=== PATIENT | female | born 1985 ===

== ENCOUNTER 2017-11-12 21:09 | Emergency (ER) | payer BC ==
[2017-11-12] MEDS ORDERED: Sodium Chloride 0.9% 1,000 ML IV STA (22:47)
--- NOTE | 2017-11-12 23:01 | ED PDOC ---
HPI:Nausea, Vomiting, Diarrhea Time Seen by Provider: 11/12/17 21:37 Chief Complaint (Nursing): Flu-like Symptoms Chief Complaint (Provider): nausea History Per: Patient History/Exam Limitations: no limitations Onset/Duration Of Symptoms: Days (22), Waxing/Waning Current Symptoms Are (Timing): Still Present Additional Complaint(s): 32 y/o female presents with intermittent nausea x 2 days. Associated headache, and upper abdominal discomfort. Denies fever, vomiting, cough, congestion, chest pain, shortness of breath, palpitations, changes in bowel movements, urinary symptoms. Past Medical History Reviewed: Historical Data, Nursing Documentation, Vital Signs Vital Signs: Last Vital Signs Temp 98.3 F 11/12/17 21:17 Pulse 66 11/12/17 21:17 Resp 18 11/12/17 21:17 BP 116/67 11/12/17 21:17 Pulse Ox 99 11/12/17 21:17 - Medical History PMH: Asthma - Surgical History Surgical History: No Surg Hx - Family History Family History: States: No Known Family Hx - Home Medications Home Medications: Ambulatory Orders Medication Instructions Recorded Famotidine [Pepcid] 20 mg PO BID #10 tab 11/13/17 Ondansetron ODT [Zofran ODT] 4 mg PO Q8 PRN #10 odt 11/13/17 - Allergies Allergies/Adverse Reactions: Allergies Allergy/AdvReac Type Severity Reaction Status Date / Time amoxicillin Allergy RASH Verified 11/12/17 21:16 Review of Systems ROS Statement: Except As Marked, All Systems Reviewed And Found Negative Gastrointestinal: Positive for: Nausea, Abdominal Pain Neurological: Positive for: Headache Physical Exam - Reviewed Nursing Documentation Reviewed: Yes Vital Signs Reviewed: Yes - Physical Exam Appears: Positive for: Well, Non-toxic, No Acute Distress Head Exam: Positive for: ATRAUMATIC, NORMAL INSPECTION, NORMOCEPHALIC Skin: Positive for: Normal Color Eye Exam: Positive for: Normal appearance ENT: Positive for: Normal ENT Inspection Cardiovascular/Chest: Positive for: Regular Rate, Rhythm Respiratory: Positive for: Normal Breath Sounds Gastrointestinal/Abdominal: Positive for: Bowel Sounds, Soft, Tenderness ( epigastric) Back: Positive for: Normal Inspection Extremity: Positive for: Normal ROM Neurologic/Psych: Positive for: Alert, Oriented - Laboratory Results Result Diagrams: 11/13/17 00:21 11/13/17 00:21 - ECG O2 Sat by Pulse Oximetry: 99 - Progress ED Course And Treament: labs, urine, IV fluids, ODT zofran, IV pepcid EXAM: US Abdomen Limited, Right Upper Quadrant EXAM DATE/TIME: Exam ordered 11/13/2017 2:39 AM CLINICAL HISTORY: 32 years old, female; Signs and symptoms; Nausea; Additional info: Abd pain TECHNIQUE: Real-time ultrasound of the right upper quadrant with image documentation. COMPARISON: No relevant prior studies available. FINDINGS: Liver: Normal. No mass. No intrahepatic bile duct dilation. Gallbladder: There is no cholelithiasis. A negative sonographic Valdez sign is reported. There is no gallbladder sludge. No pericholecystic fluid. Common bile duct: Common bile duct measures approximately 3 mm in diameter. No stones. No dilation. Pancreas: Unremarkable as visualized. Right kidney: RIGHT kidney measures 11.2 x 4.7 x 4.6 cm. No stones. No hydronephrosis. Aorta: The visualized aorta is unremarkable. IMPRESSION: No acute findings. On re-eval, patient states she is feeling better. Patient educated on findings, discharged with rx Zofran, Pepcid. Advised fluids. Follow up PMD 2-3 days. Return precautions given. Disposition - Clinical Impression Clinical Impression: Nausea, Abdominal discomfort - Patient ED Disposition Is Patient to be Admitted: No Counseled Patient/Family Regarding: Studies Performed, Diagnosis, Need For Followup, Rx Given - Disposition Disposition: Routine/Home Disposition Time: 05:59 Condition: IMPROVED Prescriptions: Famotidine [Pepcid] 20 mg PO BID #10 tab Ondansetron ODT [Zofran ODT] 4 mg PO Q8 PRN #10 odt PRN Reason: Nausea/Vomiting Instructions: Acute Abdomen (Belly Pain) Forms: [employer] (Japanese)
[2017-11-13 00:39] LABS: BASO % 0.2 % (0.0-2.0); EOS # 0.1 K/uL (0.0-0.7); EOS % 1.1 % (0.0-4.0); HEMOGLOBIN 12.6 g/dL (12.0-16.0); LYMPH # 4.3 K/uL (1.0-4.3); LYMPH % 34.4 % (20.0-40.0); MEAN CELL VOLUME 83.4 fl (81.0-99.0); MEAN CORPUSCULAR HEMOGLOBIN 27.8 pg (27.0-31.0); MEAN CORPUSCULAR HGB CONC 33.3 g/dL (33.0-37.0); MEAN PLATELET VOLUME 7.8 fl (7.2-11.7); MONO # 0.9 K/uL (0.0-0.8); MONO % 7.2 % (0.0-10.0); NEUT # 7.1 K/uL (1.8-7.0); NEUT % 57.1 % (50.0-75.0); RBC 4.55 Mil/uL (3.80-5.20); RED CELL DISTRIBUTION WIDTH 13.6 % (11.5-14.5); WHITE BLOOD COUNT 12.4 K/uL (4.8-10.8)
[2017-11-13 00:48] LABS: ALB/GLOB RATIO 1.2 (1.0-2.1); ALBUMIN 3.8 g/dL (3.5-5.0); ALT/SGPT 34 U/L (9-52); AST/SGOT 23 U/L (14-36); BLOOD UREA NITROGEN 18 mg/dl (7-17); CALCIUM 9.2 mg/dL (8.4-10.2); GFR AFRICAN-AMERICAN > 60; GFR NON-AFRICAN AMERICAN > 60; LIPASE 90 U/L (23-300)
[2017-11-13 05:41] VITALS: O2SAT 99
[2017-11-13 06:06] VITALS: BP 126/72; PULSE 82; RESP 16; TEMP 98.5
--- NOTE | 2017-11-13 11:03 | US ---
HISTORY: Abdominal pain COMPARISON: None. TECHNIQUE: Sonographic evaluation of the right upper quadrant of the abdomen. FINDINGS: LIVER: Measures 14.8 cm in length. Patent portal vein. Portal venous flow: Hepatopetal. Unremarkable echogenicity of the liver parenchyma. No mass. No intrahepatic bile duct dilatation. GALLBLADDER: Unremarkable. No gallstones. COMMON BILE DUCT: Measures 3.4 mm. No stones. No dilatation. PANCREAS: Unremarkable as visualized. No mass. No ductal dilatation. RIGHT KIDNEY: Measures 4.7 x 11.2 cm in length. Normal echogenicity. No calculus, mass, or hydronephrosis. AORTA: No aneurysmal dilatation. IVC: Unremarkable. OTHER FINDINGS: None . IMPRESSION: No acute findings related to/accounting for the clinical presentation. Concordant results (preliminary interpretation) provided by [facility]. Procedure Completed: 04:24 Preliminary ([facility]) Report: Dictated and Authenticated: 04:57 Final Interpretation: 11:01 November 13, 2017.
== END 2017-11-13 06:06 | disposition home or self-care (01) ==
LOC: H.ER 21:09
DX: R10.9 Unspecified abdominal pain (principal); R11.0 Nausea; J45.909 Unspecified asthma, uncomplicated
CPT/HCPCS: 76705; 80053; 83690; 85025; 87804; 96374; 99283; J7040

== ENCOUNTER 2018-03-03 21:31 | Emergency (ER) | payer OTHER ==
[2018-03-03 21:42] VITALS: PULSE 73; TEMP 98.2
[2018-03-03] MEDS ORDERED: Sodium Chloride 0.9% 500 ML IV STA (22:30)
[2018-03-03 23:07] LABS: BASO % 0.3 % (0.0-2.0); EOS # 0.1 K/uL (0.0-0.7); EOS % 1.1 % (0.0-4.0); HEMOGLOBIN 12.4 g/dL (12.0-16.0); LYMPH # 2.8 K/uL (1.0-4.3); LYMPH % 27.3 % (20.0-40.0); MEAN CELL VOLUME 83.1 fl (81.0-99.0); MEAN CORPUSCULAR HEMOGLOBIN 28.6 pg (27.0-31.0); MEAN CORPUSCULAR HGB CONC 34.4 g/dL (33.0-37.0); MEAN PLATELET VOLUME 7.7 fl (7.2-11.7); MONO # 0.6 K/uL (0.0-0.8); MONO % 5.6 % (0.0-10.0); NEUT # 6.7 K/uL (1.8-7.0); NEUT % 65.7 % (50.0-75.0); NRBC % 0.1 % (0.0-0.0); RBC 4.33 Mil/uL (3.80-5.20); RED CELL DISTRIBUTION WIDTH 13.9 % (11.5-14.5); WHITE BLOOD COUNT 10.2 K/uL (4.8-10.8)
[2018-03-03 23:12] LABS: ALB/GLOB RATIO 1.3 (1.0-2.1); ALBUMIN 3.9 g/dL (3.5-5.0); ALT/SGPT 44 U/L (9-52); AST/SGOT 32 U/L (14-36); BLOOD UREA NITROGEN 15 mg/dl (7-17); CALCIUM 9.1 mg/dL (8.4-10.2); GFR NON-AFRICAN AMERICAN > 60
[2018-03-03 23:20] LABS: B-TYPE NATRIURETIC PEPTIDE 90.2 pg/ml (0-450)
--- NOTE | 2018-03-04 00:17 | ED PDOC ---
HPI: Headache Time Seen by Provider: 03/03/18 21:48 Chief Complaint (Nursing): Headache Chief Complaint (Provider): Headache History Per: Patient History/Exam Limitations: no limitations Onset/Duration Of Symptoms: Days (x2) Current Symptoms Are (Timing): Still Present Associated Symptoms: Nausea. denies: Photophobia, Vomiting Additional Complaint(s): 33 year old female with a pmhx of asthma presents to the ED for evaluation of a headache associated with nausea. As per patient, her headache began last night, and worsened today becoming more intense, unrelieved with Tylenol. Otherwise: (- ) thunderclap headache, (-) worse headache of life, (-) vomiting, (-) photophobia, (-) URI symptoms, (-) fever, (-) trauma, (-) subjective neurologic symptoms. Additionally, patient is reporting having bilateral leg swelling for two months. She states she saw her PMD, who told her it could just be attributed to her gaining weight, but she is worried about it still. Otherwise: (-) pain to legs, (-) chest pain, (-) shortness of breath, (-) hospitalization, (-) prolonged immobility, (-) recent travel. PMD: Roberto Garcia Past Medical History Reviewed: Historical Data, Nursing Documentation, Vital Signs Vital Signs: Last Vital Signs Temp 98.2 F 03/03/18 21:39 Pulse 73 03/03/18 21:39 Resp 16 03/03/18 21:39 BP 109/73 03/03/18 21:39 Pulse Ox 99 03/03/18 21:39 - Medical History PMH: Asthma - Surgical History Surgical History: No Surg Hx - Family History Family History: States: Unknown Family Hx - Social History Current smoker - smoking cessation education provided: No Alcohol: None Drugs: Denies - Home Medications Home Medications: Ambulatory Orders Medication Instructions Recorded Famotidine [Pepcid] 20 mg PO BID #10 tab 11/13/17 Ondansetron ODT [Zofran ODT] 4 mg PO Q8 PRN #10 odt 11/13/17 Metoclopramide HCl [Reglan] 10 mg PO QID PRN #20 tablet 03/04/18 - Allergies Allergies/Adverse Reactions: Allergies Allergy/AdvReac Type Severity Reaction Status Date / Time amoxicillin Allergy RASH Verified 03/03/18 21:39 Review of Systems ROS Statement: Except As Marked, All Systems Reviewed And Found Negative Constitutional: Negative for: Fever Eyes: Negative for: Other (photophobia) Cardiovascular: Negative for: Chest Pain Respiratory: Negative for: Shortness of Breath, Other (URI symptoms) Gastrointestinal: Positive for: Nausea. Negative for: Vomiting Musculoskeletal: Positive for: Other (swelling to bilateral lower extremities). Negative for: Leg Pain Neurological: Positive for: Headache (but not thunderclap or worst of her life) . Negative for: Other (subjective neurological symptoms) Physical Exam - Reviewed Nursing Documentation Reviewed: Yes Vital Signs Reviewed: Yes - Physical Exam Comments: GENERAL APPEARANCE: Patient is awake, alert, oriented x 3, in no acute distress. SKIN: Warm, dry; (-) cyanosis; (-) rash. HEAD: (-) scalp swelling or tenderness, (-) temporal artery tenderness. EYES: (-) conjunctival pallor, (-) scleral icterus. ENMT: (-) sinus tenderness; mucous membranes are moist. NECK: (-) tenderness, (-) stiffness, (-) meningismus, (-) lymphadenopathy. CHEST AND RESPIRATORY: (-) rales, (-) rhonchi, (-) wheezes; breath sounds equal bilaterally. HEART AND CARDIOVASCULAR: (-) irregularity; (-) murmur, (-) gallop. ABDOMEN AND GI: Soft; (-) tenderness. EXTREMITIES: (+) mild non-pitting edema to bilateral LE, (-) calf tenderness. NEURO AND PSYCH: Mental status as above. horticultural agent: Pupils equal and reactive; EOMI ; (-) facial asymmetry; tongue and uvula midline. Strength symmetric. - Laboratory Results Result Diagrams: 03/03/18 22:45 03/03/18 22:45 - ECG O2 Sat by Pulse Oximetry: 99 (RA) Pulse Ox Interpretation: Normal Medical Decision Making Medical Decision Making: Time: 22:26 Initial Impression: headache, bilateral calf swelling Initial Plan: --EKG --BNP --CMP --Urine --Urine dipstick --CBC with differential --D Dimer --CXR --Normal saline IV --Toradol 30 mg IVP 23:35 -Uhcg (-) -Udip (-) -EKG: NSR at 69 bpm, (-) acute ST changes, as read by PA. -CXR : NAD, as read by PA. -Labs reviewed: D Dimer slightly positive -Doppler lower extremities ordered US doppler b/l LE : FINDINGS: Right deep veins: Unremarkable. No DVT in the right common femoral, femoral, proximal deep femoral or popliteal veins. The veins demonstrate normal color flow, are normally compressible, with normal phasic flow and/or augmentation response. Right superficial veins: Unremarkable. No thrombus in the visualized right great saphenous vein. Left deep veins: Unremarkable. No DVT in the left common femoral, femoral, proximal deep femoral or popliteal veins. The veins demonstrate normal color flow, are normally compressible, with normal phasic flow and/or augmentation response. Left superficial veins: Unremarkable. No thrombus in the visualized left great saphenous vein. Soft tissues: No acute findings. IMPRESSION: Normal bilateral lower extremity duplex venous ultrasound. Dictated and Authenticated by: Katlin Scott MD 03/04/2018 12:54 AM Eastern Time ([place] & [place]) 0100 On re-evaluation, patient reports improvement of symptoms, reports significant improvement of her headache and denies any nausea, CP or SOB. On exam, patient remains AAOx3, in no acute distress. Repeat neuro exam shows no focal findings. VS BP 128/61 R 17 O2sat 100%RA. Diagnostic results d/w the patient in great detail. Based on history, exam and diagnostic results, plan will be for outpatient follow up. Patient feels comfortable going home. Patient instructed to follow-up with pmd in 1-2 days without fail. Advised to take medication as prescribed. Return to the emergency room at any time for any new or worsening symptoms. Patient states she fully agrees with and understands discharge instructions. States that she agrees with the plan and disposition. Verbalized and repeated discharge instructions and plan. I have given the patient opportunity to ask any additional questions. Scribe Attestation: Documented by Diandra Mclaughlin, acting as a scribe for Beckie Yung PA-C. Provider Scribe Attestation: All medical record entries made by the Scribe were at my direction and personally dictated by me. I have reviewed the chart and agree that the record accurately reflects my personal performance of the history, physical exam, medical decision making, and the department course for this patient. I have also personally directed, reviewed, and agree with the discharge instructions and disposition. Disposition - Clinical Impression Clinical Impression: Headache, Leg edema - Patient ED Disposition Is Patient to be Admitted: No Counseled Patient/Family Regarding: Studies Performed, Diagnosis, Need For Followup - Disposition Disposition: Routine/Home Disposition Time: 01:00 Condition: IMPROVED Additional Instructions: Thank you for letting us take care of you today. You were treated for headache, LE edema. The emergency medical care you received today was directed towards the acute presenting symptoms. If you were prescribed any medication, please fill it and give as directed. It may take several days for your symptoms to resolve. Return to the Emergency Department at any time if symptoms worsen, do not improve, or if any other problems arise. Please contact your doctor in 2 days for re-evaluation and follow up. Bring any paperwork you were given at discharge with you along with any medications to your follow up visit. Our treatment cannot replace ongoing medical care by a primary care provider (PCP) outside of the emergency department. Thank you for allowing the [facility] team to be part of your care today. Prescriptions: Metoclopramide HCl [Reglan] 10 mg PO QID PRN #20 tablet PRN Reason: Other Instructions: Headache, Adult, Dependent Edema (DC) Forms: [employer] (Japanese), [facility] ED School/Work Excuse - PA / OPERATING MANAGER / Resident Statement MD/DO has reviewed & agrees with the documentation as recorded.
[2018-03-04 01:49] VITALS: BP 128/61; RESP 17
[2018-03-04 03:52] VITALS: O2SAT 99
--- NOTE | 2018-03-04 08:32 | RAD ---
Date of service: 03/03/2018 HISTORY: LE edema COMPARISON: No prior. TECHNIQUE: Chest PA and lateral FINDINGS: LUNGS: No active pulmonary disease. PLEURA: No significant pleural effusion identified. No pneumothorax apparent. CARDIOVASCULAR: Normal. OSSEOUS STRUCTURES: No significant abnormalities. VISUALIZED UPPER ABDOMEN: Normal. OTHER FINDINGS: None. IMPRESSION: No acute cardiopulmonary disease appreciated.
--- NOTE | 2018-03-04 11:40 | US ---
Date of service: 03/03/2018 PROCEDURE: Bilateral lower extremity venous duplex Doppler. HISTORY: leg pain, r/o dvt COMPARISON: None available. TECHNIQUE: Bilateral common femoral, superficial femoral, popliteal and posterior tibial veins were evaluated. Flow was assessed with color Doppler, compressibility, assessment of phasic flow and augmentation response. FINDINGS: COMMON FEMORAL VEIN: Right CFV: Unremarkable. Left CFV: Unremarkable. SUPERFICIAL FEMORAL VEIN: Right SFV: Unremarkable. Left SFV: Unremarkable. POPLITEAL VEIN: Right Popliteal: Unremarkable. Left Popliteal: Unremarkable. POSTERIOR TIBIAL VEIN: Right PTV: Unremarkable. Left PTV: Unremarkable. OTHER FINDINGS: None. IMPRESSION: No evidence of deep venous thrombosis. Concordant results (preliminary interpretation) provided by [facility]. Procedure Completed: 23:57. Preliminary ([facility]) Report: Dictated and Authenticated: 00:54. Final Interpretation: 11:38. March 04, 2018.
--- NOTE | 2018-03-04 17:44 | CARD ---
APPROVED REPORT Date of service: 03/03/2018 EKG Measurement Heart [id number] <Conclusion> Normal sinus rhythm Normal ECG
== END 2018-03-04 01:48 | disposition home or self-care (01) ==
LOC: H.ER 21:31
DX: R60.0 Localized edema (principal)
CPT/HCPCS: 71046; 80053; 81025; 83880; 85025; 85378; 93005; 93970; 96374; 99285; J1885; J7030

== ENCOUNTER 2018-09-04 06:31 | Emergency (ER) | payer OTHER ==
--- NOTE | 2018-09-04 07:56 | ED PDOC ---
Lower Extremity Pain/Injury Time Seen by Provider: 09/04/18 07:27 Chief Complaint (Nursing): Lower Extremity Problem/Injury Chief Complaint (Provider): Lower Extremity Problem/Injury History Per: Patient History/Exam Limitations: no limitations Onset/Duration Of Symptoms: Hrs Current Symptoms Are (Timing): Still Present Additional Complaint(s): 33 year old female with a past medical history of asthma who is presenting to the ED for evaluation of shooting pain down left leg originating near left lower abdomen/left pelvic region onset earlier this morning. Patient states that she just recently had blood work where everything was normal except for high triglycerides. She denies any history of clots or any fall/trauma/injury. Patient also denies any chest pain, shortness of breath, fevers or vaginal bleeding. PMD: Lower Extremity Problem/Injury Past Medical History Reviewed: Historical Data, Nursing Documentation, Vital Signs Vital Signs: Last Vital Signs Temp 97.6 F 09/04/18 07:02 Pulse 61 09/04/18 07:02 Resp 17 09/04/18 07:02 BP 109/64 09/04/18 07:36 Pulse Ox 98 09/04/18 07:02 - Medical History PMH: Asthma - Surgical History Surgical History: No Surg Hx - Family History Family History: States: Diabetes, Hypertension - Social History Current smoker - smoking cessation education provided: No Alcohol: None Drugs: Denies - Home Medications Home Medications: Ambulatory Orders Medication Instructions Recorded Famotidine [Pepcid] 20 mg PO BID #10 tab 11/13/17 Ondansetron ODT [Zofran ODT] 4 mg PO Q8 PRN #10 odt 11/13/17 Metoclopramide HCl [Reglan] 10 mg PO QID PRN #20 tablet 03/04/18 - Allergies Allergies/Adverse Reactions: Allergies Allergy/AdvReac Type Severity Reaction Status Date / Time amoxicillin Allergy RASH Verified 09/04/18 07:06 ibuprofen AdvReac DIARRHEA Verified 09/04/18 07:50 Review of Systems ROS Statement: Except As Marked, All Systems Reviewed And Found Negative Constitutional: Negative for: Fever Cardiovascular: Negative for: Chest Pain Respiratory: Negative for: Shortness of Breath Genitourinary Female: Negative for: Vaginal Bleeding Musculoskeletal: Positive for: Leg Pain. Negative for: Shoulder Pain, Arm Pain, Back Pain, Hand Pain Physical Exam - Reviewed Nursing Documentation Reviewed: Yes Vital Signs Reviewed: Yes - Physical Exam Appears: Positive for: Non-toxic, No Acute Distress Head Exam: Positive for: ATRAUMATIC, NORMAL INSPECTION, NORMOCEPHALIC Skin: Positive for: Normal Color, Warm, DRY Eye Exam: Positive for: Normal appearance ENT: Positive for: Normal ENT Inspection Neck: Positive for: Normal Cardiovascular/Chest: Positive for: Regular Rate, Rhythm. Negative for: Murmur Respiratory: Positive for: Normal Breath Sounds. Negative for: Respiratory Distress Gastrointestinal/Abdominal: Positive for: Normal Exam, Soft. Negative for: Tenderness Extremity: Positive for: Normal ROM. Negative for: Deformity, Swelling Neurologic/Psych: Positive for: Alert, forensic locksmith II-XII, Oriented. Negative for: Motor/Sensory Deficits, Aphasia, Facial Droop - Laboratory Results Result Diagrams: 09/04/18 07:50 09/04/18 07:50 - ECG O2 Sat by Pulse Oximetry: 98 (RA) Pulse Ox Interpretation: Normal Medical Decision Making Medical Decision Making: Time: 7:32 Plan: left leg pain --CMP --CBC --Motrin 600 mg PO --Tylenol 650 mg PO --Ultrasound lower extremity Ultrasound: FINDINGS: 2-D, color and duplex Doppler analysis of the lower extremity venous circulation using routine protocol from the femoral veins through the popliteal veins. Venous compressibility: Normal. Flow and augmentation patterns: Normal. Visualized veins upper third of calf: Normal. Rosado cyst: None. IMPRESSION: No sonographic or Doppler evidence for DVT in left lower extremity. 12:18 Small amount of blood noted in urine but other than that no clinically significant abnormalities when reviewing labs. pt aware/ Upon provider evaluation, patient feels better and is medically stable for discharge home. Scribe Attestation: Documented by Autumn Garsia, acting as a scribe for Romie Uriostegui MD. Provider Scribe Attestation: All medical record entries made by the Scribe were at my direction and dian perez dictated by me. I have reviewed the chart and agree that the record accurately reflects my personal performance of the history, physical exam, medical decision making, and the department course for this patient. I have also personally directed, reviewed, and agree with the discharge instructions and disposition. Disposition - Clinical Impression Clinical Impression: Leg pain, left - Patient ED Disposition Is Patient to be Admitted: No Counseled Patient/Family Regarding: Studies Performed, Diagnosis, Need For Followup - Disposition Disposition: Routine/Home Disposition Time: 12:00 Condition: IMPROVED Additional Instructions: follow up with your primary doctor in 2 days take motrin for pain return to the ED with any worsening or concerning symptoms such as chest pain or shortness of breath Instructions: Muscle and Bone Pain (DC) Forms: [facility] (Telugu), [facility] ED School/Work Excuse
[2018-09-04 08:23] LABS: BASO % 0.5 % (0.0-2.0); EOS # 0.1 K/uL (0.0-0.7); HEMOGLOBIN 13.1 g/dL (12.0-16.0); LYMPH # 3.1 K/uL (1.0-4.3); LYMPH % 37.3 % (20.0-40.0); MEAN CELL VOLUME 82.9 fl (81.0-99.0); MEAN CORPUSCULAR HEMOGLOBIN 27.2 pg (27.0-31.0); MEAN CORPUSCULAR HGB CONC 32.9 g/dL (33.0-37.0); MEAN PLATELET VOLUME 8.6 fl (7.2-11.7); MONO # 0.6 K/uL (0.0-0.8); MONO % 7.4 % (0.0-10.0); NEUT # 4.5 K/uL (1.8-7.0); NEUT % 53.8 % (50.0-75.0); NRBC % 0.1 % (0.0-0.0); RBC 4.79 Mil/uL (3.80-5.20); RED CELL DISTRIBUTION WIDTH 14.1 % (11.5-14.5); WHITE BLOOD COUNT 8.4 K/uL (4.8-10.8)
[2018-09-04 08:33] LABS: ALB/GLOB RATIO 1.3 (1.0-2.1); ALBUMIN 4.3 g/dL (3.5-5.0); ALT/SGPT 41 U/L (9-52); AST/SGOT 40 U/L (14-36); BLOOD UREA NITROGEN 17 mg/dl (7-17); CALCIUM 9.5 mg/dL (8.4-10.2); GFR NON-AFRICAN AMERICAN > 60
--- NOTE | 2018-09-04 11:26 | US ---
Date of service: 09/04/2018 HISTORY: left leg pain. PRIORS: None. FINDINGS: 2-D, color and duplex Doppler analysis of the lower extremity venous circulation using routine protocol from the femoral veins through the popliteal veins. Venous compressibility: Normal. Flow and augmentation patterns: Normal. Visualized veins upper third of calf: Normal. Rosado cyst: None. IMPRESSION: No sonographic or Doppler evidence for DVT in left lower extremity.
[2018-09-04 11:59] VITALS: BP 101/60; PULSE 63; RESP 18; TEMP 97.8
[2018-09-04 12:07] VITALS: O2SAT 98
== END 2018-09-04 12:45 | disposition home or self-care (01) ==
LOC: H.ER 06:31
DX: M79.606 Pain in leg, unspecified (principal); Z88.6 Allergy status to analgesic agent